=== PATIENT | female | born 1945 | race Caucasian/White ===

== ENCOUNTER → 2016-10-10 | Outpatient (CLI) | payer MEDICARE ==
[~2016-10-10] MED LIST: CHOL500014 PO; FLUT1DIS3 INH; GADOBUTROL 10 MMOL/10 ML VIAL ONE; GUAI-103 PO; LORA0.5T PO; MULT-658 PO; OMEG-76 PO; THYR60TA PO; VALS40TA2 PO
== END | disposition home or self-care (01) ==
LOC: CFH 15:08
PROVIDERS: ATTEND Internal Medicine Endocrinology, Diabetes & Metabolism
DX: D35.02 Benign neoplasm of left adrenal gland (principal); K76.89 Other specified diseases of liver; D35.2 Benign neoplasm of pituitary gland
CPT/HCPCS: 74183; 82565; A9585

== ENCOUNTER → 2016-10-28 | Outpatient (CLI) | payer MEDICARE ==
[~2016-10-28] MED LIST changes: -GADOBUTROL 10 MMOL/10 ML VIAL ONE
== END | disposition home or self-care (01) ==
LOC: CFH 14:34
PROVIDERS: ATTEND Internal Medicine
DX: R07.89 Other chest pain (principal); G89.29 Other chronic pain
CPT/HCPCS: 71020

== ENCOUNTER → 2017-01-08 | Outpatient (CLI) | payer MEDICARE | END | disposition home or self-care (01) | LOC: CFH 13:53 | PROVIDERS: ATTEND Internal Medicine | DX: Z12.31 Encounter for screening mammogram for malignant neoplasm of breast (principal); Z85.3 Personal history of malignant neoplasm of breast; Z98.890 Other specified postprocedural states | CPT/HCPCS: G0202 ==

== ENCOUNTER → 2017-09-18 | Outpatient (CLI) | payer MEDICARE ==
[~2017-09-18] MED LIST changes: -CHOL500014 PO; +CHOL500045 PO
== END | disposition home or self-care (01) ==
LOC: CFH 14:06
PROVIDERS: ATTEND Internal Medicine
DX: J06.9 Acute upper respiratory infection, unspecified (principal); J45.909 Unspecified asthma, uncomplicated
CPT/HCPCS: 71046

== ENCOUNTER → 2018-02-12 | Outpatient (CLI) | payer MEDICARE | END | disposition home or self-care (01) | LOC: CFH 14:10 | PROVIDERS: ATTEND Internal Medicine | DX: Z12.31 Encounter for screening mammogram for malignant neoplasm of breast (principal); J45.909 Unspecified asthma, uncomplicated; I10 Essential (primary) hypertension; E03.9 Hypothyroidism, unspecified; Z85.3 Personal history of malignant neoplasm of breast | CPT/HCPCS: 77063; 77067 ==

== ENCOUNTER 2018-08-16 15:07 | Emergency (ER) | payer MEDICARE ==
[~2018-08-16] VITALS: Ht 170.2 cm; Wt 80.2 kg
[2018-08-16 15:25] VITALS: BP 149/72
[2018-08-16] MEDS ORDERED: ACETAMINOPHEN 325 MG TABLET ONE (15:54)
[2018-08-16] MEDS ORDERED: ONDANSETRON ODT 4 MG ONE (15:55)
--- NOTE | 2018-08-16 15:57 | NUR ---
PT TO IMAGING
[2018-08-16] MEDS ORDERED: ONDANSETRON ODT 4 MG PO ONE (16:00)
[2018-08-16] MEDS ORDERED: ACETAMINOPHEN 325 MG TABLET PO ONE (16:00)
--- NOTE | 2018-08-16 17:01 | NUR ---
Patient/Caregiver given discharge instructions and they have confirmed that they understand the instructions. Patient ambulatory with steady gait. PT LEFT WITH ALL PERSONAL BELONGINGS.
== END 2018-08-16 17:02 | disposition home or self-care (01) ==
LOC: ED 16:30
DX: S06.0X0A Concussion without loss of consciousness, initial encounter (principal); E03.9 Hypothyroidism, unspecified; I10 Essential (primary) hypertension; J44.9 Chronic obstructive pulmonary disease, unspecified; W22.8XXA Striking against or struck by other objects, initial encounter; Y93.89 Activity, other specified; Y92.009 Unspecified place in unspecified non-institutional (private) residence as the place of occurrence of the external cause; Y99.8 Other external cause status
CPT/HCPCS: 70450; 99284; Q0162

== ENCOUNTER 2018-12-12 13:42 | Emergency (ER) | payer MEDICARE ==
[~2018-12-12] VITALS: Ht 170.2 cm; Wt 81.8 kg
[2018-12-12 13:59] VITALS: BP 144/77
[2018-12-12] MEDS ORDERED: KETOROLAC 30 MG/1 ML IM ONE (14:30)
[2018-12-12] MEDS ORDERED: KETOROLAC 30 MG/1 ML ONE (15:02)
--- NOTE | 2018-12-12 15:29 | NUR ---
Patient/Caregiver given discharge instructions and they have confirmed that they understand the instructions. Patient ambulatory with steady gait.
== END 2018-12-12 15:30 | disposition home or self-care (01) ==
LOC: ED 14:58
DX: M25.511 Pain in right shoulder (principal); M79.631 Pain in right forearm; M25.531 Pain in right wrist; M25.521 Pain in right elbow; M79.644 Pain in right finger(s); M54.12 Radiculopathy, cervical region
CPT/HCPCS: 72125; 96372; 99284; J1885

== ENCOUNTER → 2019-08-25 | Outpatient (CLI) | payer MEDICARE ==
[~2019-08-25] MED LIST changes: +ANAS1TAB PO; +APIX5TAB PO; +DILT120C48 PO; +REGADENOSON 0.4 MG/5 ML SYRINGE ONE
== END | disposition home or self-care (01) ==
LOC: CFH 12:21
PROVIDERS: ATTEND Internal Medicine Cardiovascular Disease
DX: I48.0 Paroxysmal atrial fibrillation (principal); I10 Essential (primary) hypertension; R06.02 Shortness of breath
CPT/HCPCS: 78452; 93017; A9502; J2785

== ENCOUNTER 2020-04-23 08:57 | Outpatient (CLI) | payer MEDICARE ==
[~2020-04-23 08:57] MED LIST changes: -REGADENOSON 0.4 MG/5 ML SYRINGE ONE
== END 2020-04-23 23:59 | disposition home or self-care (01) ==
LOC: CFH 08:57
PROVIDERS: ATTEND Internal Medicine
DX: Z12.31 Encounter for screening mammogram for malignant neoplasm of breast (principal); Z85.3 Personal history of malignant neoplasm of breast
CPT/HCPCS: 77063; 77067

== ENCOUNTER 2021-03-16 22:20 | Emergency (ER) | payer MEDICARE | END 2021-03-16 22:39 | disposition left against medical advice (07) | LOC: ED 22:25 | DX: H57.12 Ocular pain, left eye (principal); Z53.21 Procedure and treatment not carried out due to patient leaving prior to being seen by health care provider ==

== ENCOUNTER → 2021-03-19 | Outpatient (CLI) | payer MEDICARE ==
[2021-03-19 13:16] LABS: BASOPHILS % (AUTO) 1 % (0-1); EOSINOPHILS % (AUTO) 0 % (1-7); LYMPHOCYTES % (AUTO) 15 % (22-44); MEAN CORPUSCULAR HEMOGLOBIN 29.8 pg (27.0-34.8); MEAN CORPUSCULAR HGB CONC 33.3 g/dL (32.4-35.8); MEAN PLATELET VOLUME 6.9 fL (7.4-10.4); MONOCYTES % (AUTO) 5 % (2-9); NEUTROPHILS % (AUTO) 79 % (42-75); PLATELET COUNT 326 x10^3/uL (130-400); RED BLOOD COUNT 4.46 x10^6/uL (3.82-5.3); RED CELL DISTRIBUTION WIDTH 13.8 % (9.6-15.2)
[2021-03-19 13:32] LABS: ANION GAP 6 mmol/L (5-15); CALCIUM 9.2 mg/dL (8.5-10.1); CHLORIDE 107 mmol/L (98-107)
[2021-03-19 13:33] LABS: ALANINE AMINOTRANSFERASE 30 U/L (12-78); ALBUMIN 3.8 g/dL (3.4-5.0); ALKALINE PHOSPHATASE 64 U/L (45-117); BILIRUBIN,TOTAL 0.5 mg/dL (0.2-1.0); CHOL/HDL RATIO 2.2; CHOLESTEROL, TOTAL 229 mg/dL (140-239); CREATININE 0.84 mg/dL (0.55-1.02); HDL CHOL % 46 % (28-40); HDL CHOLESTEROL (DIRECT) 105 mg/dL (40-60); LDL CHOLESTEROL,CALCULATED 111 mg/dL (54-169); LDL/HDL RATIO 1.1 (0.5-3.0); TOTAL PROTEIN 7.8 g/dL (6.4-8.2); TRIGLYCERIDES 65 mg/dL (50-200); VLDL CHOLESTEROL 13 mg/dL (0-25)
== END | disposition home or self-care (01) ==
LOC: CFH 12:17
PROVIDERS: ATTEND Internal Medicine
DX: G31.9 Degenerative disease of nervous system, unspecified (principal); H35.82 Retinal ischemia; I10 Essential (primary) hypertension; I48.0 Paroxysmal atrial fibrillation
CPT/HCPCS: 36415; 70450; 80053; 80061; 85025

== ENCOUNTER 2021-04-01 00:36 | Emergency (ER) | payer MEDICARE ==
[~2021-04-01] VITALS: Ht 170.2 cm; Wt 83.0 kg
--- NOTE | 2021-04-01 01:12 | NUR ---
PT PRESENTS TO THE ER FOR FALLING OUT OF HER BED, PT STATES SHE FELL ON HER FACE AND HIT THE BRIDGE OF HER NOSE, PT DENIES LOSING CONCIOUSNESS, PT A/OX4, PT COMPLAING OF SLIGHT HEAD HEADACHE
--- NOTE | 2021-04-01 02:04 | NUR ---
BREAK RN-PT RESTING QUIETLY, CT RESULTS PENDING.
--- NOTE | 2021-04-01 02:18 | NUR ---
PT LAYING IN BED, A/OX4, ALL NEEDS IN REACH, CALL LIGHT IN REACH, NAD AT THIS TIME, VSS
[2021-04-01] MEDS ORDERED: ACETAMINOPHEN 325 MG TABLET ONE (02:35)
[2021-04-01 03:09] VITALS: BP 123/57
== END 2021-04-01 03:11 | disposition home or self-care (01) ==
LOC: ED 00:45
DX: S06.0X0A Concussion without loss of consciousness, initial encounter (principal); S02.2XXA Fracture of nasal bones, initial encounter for closed fracture; I10 Essential (primary) hypertension; W06.XXXA Fall from bed, initial encounter; Y93.89 Activity, other specified; Y92.009 Unspecified place in unspecified non-institutional (private) residence as the place of occurrence of the external cause; Y99.8 Other external cause status
CPT/HCPCS: 70450; 99284